=== PATIENT | female | born 1990 ===

== ENCOUNTER 2024-07-27 11:42 | Day surgery (SDC) | payer OTHER, SELFPAY ==
[2024-07-25 14:12] VITALS: BMI 32.1
[2024-07-27] VITALS (8 sets, daily range): BP systolic 102–116; BP diastolic 56–83; PULSE 74–89; RESP 12–20; TEMP 36.2–36.6; O2SAT 91–99; BMI 31.4
--- NOTE | 2024-07-27 | PATH_ITS ---
[facility] Accession Number: [id number] No. of containers..01 Tissue . 01 Material submitted: . fallopian tube - BILATERAL FALLOPIAN TUBES . 01 Diagnosis: BILATERAL FALLOPIAN TUBES, LAPAROSCOPIC BILATERAL SALPINGECTOMY: Longer fallopian tube, complete cross-sections, with no significant histomorphologic abnormality. [place] fallopian tube, complete corss-sections, with benign paratubal cysts (up to 7 mm in greatest dimension), and negative for significant histomorphologic abnormality. Non-fimbriated tube fragment, corss-sections; negative for significant atypia. [facility] 08/01/2024 1022 Local . 01 Electronically signed: . Ramya Mathews MD, Pathologist NPI- [id number] . 01 Gross description: . Received in formalin, labeled with two identifiers and bilateral fallopian tubes, are two unoriented fimbriated fallopian tubes (6.3 x 0.6 cm and 4.6 x 0.8 cm) and a non-fimbriated, tubular fragment measuring 2.3 x 0.6 cm. The serosa of all three fragments is long to violaceous with cystic structures on the shorter tube up to 0.7 cm in greatest dimension with serosanguinous fluid. The lumens are stellate and unremarkable. Foreman/Project Manager sections are submitted as follows: A1: Longer fallopian tube to include one-half of bisected fimbriae and cross sections. A2: [place] fallopian tube to include one-half of bisected fimbriae, cross sections, and cysts. A3: Non-fimbriated fragment cross sections. ([id number]) /[facility] 07/29/2024 1242 Local . 01 Pathologist provided ICD-10: Z30.2 . 01 CPT . 939126 Specimen Comment: A courtesy copy of this report has been sent to [phone] Performed at: 01 [facility] [address] [facility], [place], [place] [id number] MD Russ Norman MD Phone: [phone]
[2024-07-27] MEDS: SCOPOLAMINE 1 PATCH TOP (12:20)
[2024-07-27] MEDS: ACETAMINOPHEN 325 MG TABLET 975 MG PO (12:20)
[2024-07-27] MEDS: LACTATED RINGERS 1,000 ML 42 ML IV (12:21)
--- NOTE | 2024-07-27 13:21 | PM.PREOP ---
Pre-operative Note COVID-19 COVID-19 status: Not tested Interval Note History & Physical reviewed/Exam performed by Physician: Yes Changes to H&P: No
[2024-07-27] MEDS: BUPIVACAINE 0.5% W/ EPI (PF) 30 ML VIAL INJ (14:28)
--- NOTE | 2024-07-27 14:55 | SUR.OPER ---
Lithotomy on padded OR bed, head on pillow, arms padded and tucked at sides. Legs secured in padded yellow fins stirrups.
--- NOTE | 2024-07-27 15:39 | PM.GYNOP.1 ---
Operative Date/Time/Diagnoses Date of procedure: 07/27/24 Time of procedure: 14:00 Pre-op diagnosis: Request for sterilization Post-op diagnosis: other (KRISTIN, minimal pelvic peritoneal endometriosis) Procedure & Clinicians Procedure: Procedures Operation Date: 07/27/24 13:15 Actual Procedure Side Surgeon p Laparoscopic Salpingectomy Bilateral Lobo Farris MD Indications: Leyla is a 34-year-old nulligravida, LMP 04/29/2024, who presents in referral from Dr. Emelina Hernandez to discuss possible sterilization. She and her partner of 10 years have decided that they do not wish to have children now or in the future. He has considered vasectomy but the patient has a family history of ovarian cancer (maternal great aunt) and would like to consider laparoscopic bilateral salpingectomy to reduce her risk of certain types of gynecologic malignancy. She has considered IUDs and other forms of long acting contraception but is strongly considering sterilization, either male or female. Her Pap is current and she has a lifelong history of normal Paps. Her menses are somewhat irregular due to PCOS and she understands that sterilization will not improve the irregularity of her cycles. Patient counseled regarding alternatives, risks, benefits, and potential complications associated with laparoscopic bilateral salpingectomy. She understands that this is a procedure which would result in permanent, irreversible inability to bear children without benefit of assisted reproductive technology. Further she understands that there is a small (1-10/999) risk of failure and should failure occur it is highly likely that the resulting would be ectopic in nature. We also discussed how the procedures performed in detail as well as expectations for recovery. After consideration of all options, the patient wishes to proceed with laparoscopic bilateral salpingectomy for elective sterilization and she presents today for her scheduled surgery. Surgeon: Lobo Farris Anesthesia Type: General Operative Notes Findings: Uterus tubes and ovaries are normal. There were no abnormalities within the anterior cul-de-sac. In the posterior cul-de-sac however there is scattered superficial endometrial implants, all of which were destroyed with judicious use of monopolar cutting current at 20 w setting. The appendix could not be visualized. The upper abdomen, diaphragms, and liver edges were all normal in appearance. Photographic documentation of the pelvis and abdomen were provided to the patient. Closure Type: primary Specimen(s): left tube and right tube Applied: catheter Estimated blood loss (mL): 5 Blood products transfused: none Procedure in detail: With the patient under satisfactory general anesthesia in the modified dorsal lithotomy position, the perineum, vagina, and abdomen were prepped and draped laparoscopic bilateral salpingectomy. A pre-surgical safety time-out was then taken in accordance with [facility] protocols. The umbilicus was then infiltrated with 0.5% Marcaine with epinephrine and 1 cm vertical incision was made in the inferior aspect of the umbilicus. Veress needle was used to insufflate the abdomen with carbon dioxide and once appropriately insufflated, 5 mm bladeless trocar and sleeve were inserted through the incision. Proper placement of the sleeve was confirmed with laparoscopic visualization and insufflation of the abdomen continued. A 2nd and 3rd 5 mm laparoscopic port were placed in the right and left mid quadrants using a similar technique and using a 3 puncture technique, the abdomen and pelvis were visualized with the findings as noted above. The distal aspect of the left fallopian tube was then grasped with a grasping forceps and using a Power Seal device, fimbria ovarica was coagulated and divided the dissection using the Power Seal continuing across the mesosalpinx to the cornua where the base fallopian tube was coagulated and divided. The left fallopian tube was then removed through one of the ports and submitted pathologic specimen. Attention was then turned to the right adnexa with distal tube grasped with a grasping forcep. The Power Seal device was then used to coagulate fimbria ovarica and the dissection was carried across the mesosalpinx to the cornua where the fallopian tube on the right side was amputated at the cornua following coagulation proximal tube the Power Seal device. Pelvis was inspected with the with the findings as noted above. Using monopolar cautery with 20 w cutting current, each individual area of endometrial implantation was destroyed with electric current and at the completion of the case there were no remaining areas of suspected her obvious endometriosis present. Photographic documentation was obtained before after completion case and these images were provided the patient. In addition she requested photograph of her fallopian tubes after their removal to was provided to the patient. The pneumoperitoneum was then vented and the ports removed from the abdominal wall. Port incisions were then closed with 4-0 Monocryl using inverted interrupted stitches and skin glue was applied. Appropriate dressings were then applied, patient was awakened, and transferred to the PACU for a period of observation after having tolerated the procedure well. Post-operative Plan for aftercare: Routine postoperative care with follow-up in 2 weeks or as needed.
[2024-07-27] MEDS: OXYCODONE IR 5 MG TABLET PO ×2 (15:42→16:11)
== END 2024-07-27 16:32 | disposition home or self-care (01) ==
PROVIDERS: PCP Obstetrics & Gynecology; Referring Provider Obstetrics & Gynecology; Visit Provider Obstetrics & Gynecology
PROC: 0UT74ZZ Resection of Bilateral Fallopian Tubes, Percutaneous Endoscopic Approach (ICD-10-PCS; CPT 58661; principal; 2024-07-27 13:15)
DX: Z30.2 Encounter for sterilization (principal); N80.321 Superficial endometriosis of the posterior cul-de-sac; N83.8 Other noninflammatory disorders of ovary, fallopian tube and broad ligament
CPT/HCPCS: 58662; 58661; 81025; J2250; J2704; J3010